=== PATIENT | female | born 1995 | race Caucasian/White ===

== ENCOUNTER 2018-09-26 08:02 | Emergency (ER) | payer OTHER ==
[~2018-09-26] VITALS: Ht 172.7 cm; Wt 66.7 kg
[~2018-09-26 08:02] MED LIST: COLACE100 MG PO; LAC PO; LEVAQUIN250 MG PO; NOR10T PO
[2018-09-26 08:05] VITALS: Ht 172.7 cm; Wt 66.7 kg
[2018-09-26 09:49] VITALS: BP 122/74
== END 2018-09-26 09:49 | disposition home or self-care (01) ==
LOC: ED 08:02
DX: J02.0 Streptococcal pharyngitis (principal)
CPT/HCPCS: J1100; J1885